=== PATIENT | female | born 1970 | race Caucasian/White ===

== ENCOUNTER → 2017-03-01 | Outpatient (CLI) | payer BC ==
[~2017-03-01] MED LIST: HYDR25TA4 PO; OXYC-57 PO; OXYC1TAB3 PO; POTA10TA30 PO; TPRSR100 PO
[2017-03-01 14:22] LABS: BASO % 0.5 %; BASO ABS # 0.05 K/uL (0-0.2); COMPLETE YES; EOS % 1.9 %; IG% 0.2 %; LYMPH % 25.8 %; LYMPH ABS # 2.48 K/uL (1.2-3.4); MEAN CORPUSCULAR HEMOGLOBIN 30.6 pg (25-34); MEAN CORPUSCULAR HGB CONC 32.9 g/dl (32-36); MEAN PLATELET VOLUME 12.1 fL (7.4-10.4); MONO % 7.4 %; NEUT % 64.2 %; PLATELET COUNT 299 K/uL (130-400); RED BLOOD COUNT 5.16 M/uL (4.2-5.4); WHITE BLOOD COUNT 9.61 K/uL (4.8-10.8)
[2017-03-01 14:34] LABS: BLOOD UREA NITROGEN 7 mg/dl (7-18); CREATININE 0.84 mg/dl (0.60-1.20); GLUCOSE 74 mg/dl (70-99)
[2017-03-01 14:35] LABS: ALT/SGPT 21 U/L (12-78); BUN/CREATININE RATIO 8.8 (10-20); CARBON DIOXIDE 29 mmol/L (21-32); CHLORIDE 106 mmol/L (98-107); POTASSIUM 4.5 mmol/L (3.5-5.1); SODIUM 140 mmol/L (136-145)
[2017-03-01 14:45] LABS: ALB/GLOB RATIO 1.1 (0.9-2); ALKALINE PHOSPHATASE 64 U/L (45-117); AST/SGOT 15 U/L (15-37)
[2017-03-01 15:11] LABS: CALCIUM 9.4 mg/dl (8.5-10.1)
[2017-03-01 16:31] LABS: LYME DISEASE AB IGG NEG (NEG); LYME DISEASE AB IGM NEG (NEG)
== END | disposition home or self-care (01) ==
LOC: C.LABSPEC 13:36
PROVIDERS: ATTEND Family Medicine
DX: R22.9 Localized swelling, mass and lump, unspecified (principal); M25.50 Pain in unspecified joint

== ENCOUNTER → 2017-06-15 | Outpatient (CLI) | payer BC | END | disposition home or self-care (01) | LOC: C.PAPS 13:45 | PROVIDERS: ATTEND Family Medicine | DX: Z12.72 Encounter for screening for malignant neoplasm of vagina (principal) ==

== ENCOUNTER → 2017-07-16 | Outpatient (CLI) | payer BC ==
--- NOTE | 2017-07-19 08:01 | MAMMOGRAPHY REPORT ---
BILATERAL DIGITAL SCREENING MAMMOGRAM TOMOSYNTHESIS WITH CAD: 07/16/2017 CLINICAL HISTORY: Routine screening. Patient has no complaints. TECHNIQUE: Breast tomosynthesis in addition to standard 2D mammography was performed. Current study was also evaluated with a Computer Aided Detection (CAD) system. COMPARISON: Comparison is made to exam dated: 08/28/2009 mammogram - [facility]. BREAST COMPOSITION: There are scattered areas of fibroglandular density in both breasts. FINDINGS: No suspicious masses, calcifications, or areas of architectural distortion are noted in ei ther breast. There has been no significant interval change compared to prior exams. IMPRESSION: ACR BI-RADS CATEGORY 1: NEGATIVE There is no mammographic evidence of malignancy. A 1 year screening mammogram is recommended. The pa tient will receive written notification of the results. Approximately 10% of breast cancers are not detected with mammography. A negative mammographic report should not delay biopsy if a clinically suggestive mass is present. Vane Cisse M.D. ah/:07/16/2017 17:02:46 [employer]: Radha Alcantara, [facility] letter sent: Normal 1/2 BI-RADS Code: ACR BI-RADS Category 1: Negative
== END | disposition home or self-care (01) ==
LOC: C.MAMM 10:04
PROVIDERS: ATTEND Family Medicine
DX: Z12.31 Encounter for screening mammogram for malignant neoplasm of breast (principal)

== ENCOUNTER 2019-02-09 18:23 | Inpatient (IN) ==
--- OUTSIDE RECORDS SUMMARY | 2019-02-09 18:26 | External Medical Summary | Continuity of Care Document ---
:1970 Author Name Miguel Cosme Address Unavailable Unavailable , Care Team Providers Name Role Phone Gideon LINK M.D., P. Unavailable [email or web address] [place] GARVEY Unavailable Unavailable Problems Active medical history not documented Allergies and Adverse Reactions Allergy history not documented Medications Medications not documented Procedures Procedures not documented Immunizations Immunizations not documented Plan of Treatment Planned Observations Planned Goals not documented Results No Known Results Results not documented Encounters Appointment; Re Meneses III, M.D. 24-Dec-2014 15:00 Encounter Diagnosis: Problem not documented
[2019-02-09] MEDS ORDERED: SODIUM CHLORIDE 0.9% 1000ML 1,000 ML IV SCH (19:15)
--- NOTE | 2019-02-09 19:32 | XRay Report ---
XR chest 1V portable CLINICAL HISTORY: weakness COMPARISON STUDY: Chest CT July 14, 2014. FINDINGS: Anterior spinal fusion is incidentally noted. There is no pneumothorax or pleural effusion. Lungs are clear. Cardiac size is normal. Mediastinal contours are normal. There is no evidence for p ulmonary edema. IMPRESSION: No acute cardiopulmonary findings. Electronically signed by: Corby Coto M.D. 02/09/2019 7:30 PM
[2019-02-09 19:39] LABS: Basophils # (auto) 0.01 K/uL (0-0.2); Basophils % (auto) 0.1 %; Hematocrit (blood only) 45.4 % (37-47); Hemoglobin 16.3 g/dL (12.0-16.0); Immature Granulocytes # (auto) 0.03 K/uL (0.00-0.02); Immature Granulocytes % (auto) 0.3 %; Lymphocytes # (auto) 0.91 K/uL (1.2-3.4); Lymphocytes % (auto) 7.6 %; Mean Corpuscular Hgb Conc 35.9 g/dL (32-36); Mean Corpuscular Volume 85.8 fL (80-100); Mean Platelet Volume 10.6 fL (7.4-10.4); Monocytes # (auto) 0.52 K/uL (0.11-0.59); Monocytes % (auto) 4.4 %; Neutrophils # (auto) 10.43 K/uL (1.4-6.5); Neutrophils % (auto) 87.6 %; Platelet Count 362 K/uL (130-400); RDW Coefficient of Variation 13.7 % (11.5-14.5); RDW Standard Deviation 42.9 fL (36.4-46.3); Red Blood Count 5.29 M/uL (4.2-5.4)
[2019-02-09 19:55] LABS: Partial Thromboplastin Ratio 0.9; Prothrombin Time 9.8 Seconds (9.0-12.0)
[2019-02-09] MEDS ORDERED: LORazepam 1 MG TAB SL STA (20:07)
[2019-02-09 20:19] LABS: Alanine Aminotransferase 24 U/L (12-78); Albumin Globulin Ratio 0.7 (0.9-2); Albumin Level 3.6 gm/dl (3.4-5.0); Alkaline Phosphatase 74 U/L (45-117); Aspartate Aminotransferase 13 U/L (15-37); BUN Creatinine Ratio 13.4 (10-20); Bilirubin,Total 0.5 mg/dl (0.2-1); Blood Urea Nitrogen 13 mg/dl (7-18); C Reactive Protein 1.89 mg/dl (0-0.29); Carbon Dioxide 28 mmol/L (21-32); Chloride 100 mmol/L (98-107); Creatine Kinase 72 U/L (26-192); Creatinine Clr Calc Pharmacy 100.3 ml/min; Est GFR (African American) 84.3; Est GFR (Non-African American) 72.8; Globulin 4.8 gm/dl (2.5-4.0); Glucose 128 mg/dl (70-99); Magnesium 2.2 mg/dl (1.8-2.4); Phosphorus 1.1 mg/dl (2.5-4.9); Potassium 2.4 mmol/L (3.5-5.1); Sodium 134 mmol/L (136-145); Total Protein 8.4 gm/dl (6.4-8.2); Troponin I < 0.015 ng/ml (0-0.045)
[2019-02-09] MEDS ORDERED: POT PHOSPHATE MONOBASIC W/ SOD TAB PO STA (20:25)
[2019-02-09] MEDS ORDERED: POTASSIUM CHLORIDE 20 MEQ TABCR PO STA (20:25)
[2019-02-09] MEDS ORDERED: POTASSIUM PHOS 3 MMOL/1 ML INFUSION IV STA (20:25)
[2019-02-09 20:35] LABS: Lyme Ab IgG w/WB Rflx Negative (Negative); Lyme Ab IgM w/WB Rflx Negative (Negative)
[2019-02-09] MEDS: POTASSIUM CHLORIDE / WTR 10 MEQ/100 ML PLCT IV SCH ×2 (20:37→21:44)
[2019-02-09] MEDS ORDERED: POTASSIUM PHOSPHATE 15 MMOL in SODIUM CHLORIDE 0.9% 250 ML IV ONE (21:00)
[2019-02-09 21:06] LABS: Appearance Urine Clear (Clear); Bilirubin Urine Negative (Negative); Blood Urine Negative (Negative); Color Urine Yellow; Glucose Urine UA 2+ (Negative); Ketones Urine Negative (Negative); Leukocyte Esterase Urine Negative (Negative); Nitrite Urine Negative (Negative); Protein Urine Negative (Negative); Specific Gravity Urine 1.018 (1.000-1.030); Urobilinogen Urine Negative (Negative)
[2019-02-09 22:09] LABS: Pregnancy Test, Serum Negative (Negative)
--- NOTE | 2019-02-09 22:19 | CT Scan Report ---
CT OF THE HEAD WITHOUT CONTRAST CLINICAL HISTORY: Bilateral lower extremity weakness. COMPARISON STUDY: Head CT August 04, 2010. TECHNIQUE: Helical axial images of the head were obtained without IV contrast. Automated exposure con trol was utilized for the study. A dose lowering technique was utilized adhering to the principles o f ALARA. FINDINGS: No acute intracranial hemorrhage, midline shift or mass effect is present. Brain volume is normal. Ventricular system is normal. The basilar cisterns are patent. There are no extra-axial colle ctions. Guthrie-white differentiation is maintained. There are no findings to suggest acute dural sinus thrombosis or acute territorial infarct. There are no significant calvarial abnormalities. Visualized portions of the sinuses and mastoid air cells are clear. IMPRESSION: No acute intracranial findings. Electronically signed by: Corby Coto M.D. 02/09/2019 10:17 PM
--- NOTE | 2019-02-09 22:22 | CT Scan Report ---
CT OF THE CERVICAL SPINE WITHOUT CONTRAST CLINICAL HISTORY: Bilateral lower extremity weakness. COMPARISON STUDY: Cervical spine CT July 14, 2014. TECHNIQUE: Helical axial images of the cervical spine were obtained without IV contrast. Sagittal a nd coronal reconstructions were viewed. Automated exposure control was utilized for the study. A do se lowering technique was utilized adhering to the principles of ALARA. FINDINGS: Craniocervical junction is intact. There is no acute cervical spine fracture or subluxation . The patient is status post C6-C7 anterior discectomy and fusion. The hardware is intact. Facet join ts are intact. There is no prevertebral edema. Central canal and neural foramen are suboptimally asse ssed by CT. There is mild disc space narrowing and osteophytosis at several levels. There is mild mul tilevel facet arthrosis. IMPRESSION: 1. No acute cervical spine fracture or subluxation. 2. Status post C6-C7 anterior discectomy and fusion. 3. Suboptimal evaluation of the central canal and neural foramen given CT technique. Mild multilevel degenerative disc disease and facet arthrosis. Electronically signed by: Corby Coto M.D. 02/09/2019 10:21 PM
--- NOTE | 2019-02-09 22:32 | CT Scan Report ---
CT OF THE LUMBAR SPINE WITHOUT CONTRAST CLINICAL HISTORY: Bilateral lower extremity weakness. COMPARISON STUDY: No previous studies for comparison. TECHNIQUE: Axial images of the lumbar spine were obtained without IV contrast. Sagittal and coronal r econstructions were viewed. Study was performed utilizing automated exposure control for dose reducti on and according to ALARA principles. FINDINGS: For purposes of numbering on this exam, the L5-S1 disc space is assigned to axial image 321 of [id number]. Vertebral body heights are maintained. No fracture or suspicious lesion is present. Paravert ebral soft tissues are unremarkable. Cholecystectomy clips are noted. Note is made of mild disc space narrowing and osteophytosis at L5-S1. Otherwise, disc spaces are preserved. Central canal and neural foramen are suboptimally assessed by CT. 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 No disc protrusion or herniation is identified although sensitivity is diminished given CT technique. N ote is made of moderate multilevel facet arthrosis within the lumbar spine. IMPRESSION: 1. No acute lumbar spine fracture or subluxation. 2. Mild disc space narrowing at L5-S1. Central canal suboptimally assessed by CT but no evidence for severe central canal stenosis. No disc protrusion or extrusion by CT. 3. Moderate multilevel facet arthrosis. Electronically signed by: Corby Coto M.D. 02/09/2019 10:30 PM
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
[2019-02-09] MEDS ORDERED: POTASSIUM CHLORIDE 10 MEQ TABCR PO STA (23:54)
[2019-02-10] MEDS ORDERED: POTASSIUM PHOS 3 MMOL/1 ML INFUSION IV STA (01:19)
[2019-02-10] MEDS ORDERED: ACETAMINOPHEN 325 MG TAB PO PRN (01:19)
[2019-02-10] MEDS ORDERED: POLYETHYLENE (MIRALAX) 17 GM PACK PO PRN (01:19)
[2019-02-10] MEDS ORDERED: ONDANSETRON INJ 2 MG/ML 2 ML VIAL IV PRN (01:19)
[2019-02-10] MEDS ORDERED: ALUMINUM/MAGNESIUM SUSP 30 ML UDC PO PRN (01:19)
[2019-02-10] MEDS ORDERED: MAGNESIUM HYDROXIDE SUSP 30 ML UDC PO PRN (01:19)
[2019-02-10] MEDS ORDERED: POTASSIUM PHOSPHATE 30 MMOL in SODIUM CHLORIDE 0.9% 500 ML IV ONE (01:30)
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
[2019-02-10] MEDS: BCP'S~ORDER AWAITING ACTION SCH ×2 (07:38→15:44)
[2019-02-10] MEDS ORDERED: POTASSIUM CHLORIDE 20 MEQ TABCR PO SCH (09:00)
[2019-02-10 09:44] LABS: BUN Creatinine Ratio 8.7 (10-20); Blood Urea Nitrogen 7 mg/dl (7-18); C Reactive Protein 1.02 mg/dl (0-0.29); Calcium 8.1 mg/dl (8.5-10.1); Carbon Dioxide 27 mmol/L (21-32); Chloride 107 mmol/L (98-107); Creatinine Clr Calc Pharmacy 116.3 ml/min; Est GFR (African American) 100.9; Est GFR (Non-African American) 87.1; Glucose 112 mg/dl (70-99); Potassium 2.5 mmol/L (3.5-5.1)
[2019-02-10 09:50] LABS: Sodium 142 mmol/L (136-145)
[2019-02-10 09:51] LABS: Phosphorus 2.6 mg/dl (2.5-4.9); Troponin I < 0.015 ng/ml (0-0.045)
[2019-02-10] MEDS ORDERED: POTASSIUM CHLORIDE 20 MEQ TABCR PO STA (09:56)
[2019-02-10] MEDS: POTASSIUM CHLORIDE 20 MEQ TABCR PO SCH ×2 (13:33→21:53)
--- NOTE | 2019-02-10 18:10 | Hospitalist Progress Note ---
Date of Service February 10, 2019 Assessment & Plan (1) Lower extremity weakness: The differential for this is somewhat broad. For practical purposes given her very low potassium as well as the fact that it dropped fairly precipitously, the bleed differential would be that severe hypokalemia is causing a diffuse muscle weakness, but she is noticing it most going up steps because that would require the most power. We will replace K and follow her strength. But in the meantime we will explore other differentials as well. She does not show any bony or disc disease that would cause nerve impingement, nor does she have any pain that would fit with this, so conventional spinal disease appears to be out of the question. That said given her somewhat odd clinical course and elevated inflammatory markers, it does beg the question of something more in terms of an inflammatory or demyelinating neurologic process. Will ask neurology for an opinion, and a low threshold for MRI of brain or L-spine (with sedation given her claustrophobia) (2) Abnormal EKG: She has had ongoing ST depressions, no troponin, and no cardiac symptoms. This most likely is her normal EKG. Less likely is related to the hypokalemia, but that usually causes overall diminished electrical activity. (3) Hypokalemia: She notes that she is had difficulty with low potassium for years, but she also notes that the difficulty of low potassium was preceded by being on thiazide type diuretics. Given the chlorthalidone is more potent, and given that her potassium dropped precipitously after switching to that, it is likely that she is quite sensitive to the potassium wasting effects of diuretics, and likely just needs to have her blood pressure managed by other means. More than likely the minimal improvement of her potassium despite significant supplementation is due to intracellular shifting. We will continue to replete aggressively, follow-up in the morning (4) Hypophosphatemia: Replaced (5) Hypertension: Continue metoprolol, hold off on any further diuretics. Follow pressures. (6) Cervical spinal cord compression: This seems to be unrelated given her weakness seems to be mostly proximal leg, certainly if further work-up is having no yield, then a dedicated MRI of the C-spine could possibly, theoretically yield findings that might explain her weakness, but more likely this does not relate to her acute presentation. Subjective No new complaints or symptoms, although she has not really been out of bed since getting here except for walking to the bathroom and around in her room. She notes that her main problem is been going up steps, and everything in the hospital is on the level. She reiterates her HPI. She notes that about 2 weeks ago or so she was changed from hydrochlorothiazide to chlorthalidone, and then over the last day or 2, she is noticed leg weakness predominantly going up steps. She notes on a level she is okay, she notes that getting in and out of her car (what seems to be about a level move) is okay. She does not necessarily notice any clear-cut weakness laying in bed, but notes weakness going up steps. Later she discusses with nursing and degree of leg paresthesias as well. She does not necessarily note any other weakness, but she has felt quite fatigued for a while. Case discussed with PCP as well. Patient has had a face rash going on the last few weeks as well, he had checked an MARK and rheumatoid factor both of which were negative. And of note her potassium was 3.3 about a week or so ago. Review of Systems Review of Systems: All systems reviewed & are unremarkable except as noted in HPI & below No chest pain no shortness of breath. Physical Exam Physical Exam: In general awake alert oriented x3, pleasant no distress. HEENT normocephalic atraumatic mucous membranes moist. Breathing unlabored no accessory muscle use good effort Extremities show no cyanosis clubbing or edema no calf tenderness. Neuro shows cranial nerves II through XII are grossly intact gross motor and sensory are intact. Bilateral lower extremities show about 4+ out of 5 strength at flexion and extension of the hip, otherwise strength appears to be intact. She does not appear to show any muscle wasting. Results & Data Vital Signs (Past 12 Hours) Vital Signs Temp Pulse Pulse Resp BP Pulse Ox 02/10/19 15:49 36.7 C 74 16 133/84 96 02/10/19 11:07 36.6 C 71 18 128/83 94 02/10/19 07:23 36.4 C L 76 18 116/77 95 02/10/19 07:02 69 (1) Lower extremity weakness Laterality: bilateral Qualified Code(s): R29.898 - Other symptoms and signs involving the musculoskeletal system
[2019-02-10] MEDS ORDERED: METOPROLOL SUCC 50MG EXT REL TAB PO SCH (21:00)
[2019-02-11] MEDS: BCP'S~ORDER AWAITING ACTION SCH ×3 (00:05→17:01)
[2019-02-11 07:21] LABS: BUN Creatinine Ratio 14.6 (10-20); Calcium 8.3 mg/dl (8.5-10.1); Creatinine Clr Calc Pharmacy 136.5 ml/min; Est GFR (Non-African American) 104.4
[2019-02-11] MEDS: POTASSIUM CHLORIDE 20 MEQ TABCR PO SCH ×2 (08:34→13:47)
[2019-02-11] MEDS ORDERED: POTASSIUM CHLORIDE 20 MEQ TABCR PO ONE (09:00)
--- NOTE | 2019-02-11 12:10 | Neurology Consultation ---
Date of Consultation February 11, 2019 Assessment & Plan (1) Lower extremity weakness: This is a 48-year-old female who presents with proximal lower extremity weakness and distal lower extremity sensory changes. Certainly her symptoms could be secondary to recent medication change to chlorthalidone which can cause severe hypokalemia. Hypokalemia can cause muscle weakness. It could take a week or 2 after holding medication to see improvement. Additional differential diagnosis alludes lumbar spinal lesion, inflammatory or demyelinating lesions, inflammatory myopathy, metabolic disorders including vitamin deficiencies Recommendations: Continue to hold chlorthalidone since this could be related to her symptoms. I have sent off for additional labs for work-up including rheumatology panel, ceruloplasmin and copper level, magnesium level, acetylcholine receptor antibodies, SPEP, folate, B6 level, CK, vitamin B12 level, vitamin D level, anaplasmosis. Recommend MRI of the lumbar spine with contrast to rule out lumbar spinal lesions. Recommend physical therapy evaluation and treatment. If safe to go home from physical therapy standpoint, could reasonably continue her work-up and evaluation as an outpatient in the neurology clinic after she gets MRI spine. If still symptomatic, would consider EMG as an outpatient. History of Present Illness Reason for Consultation: Consultation for bilateral leg weakness Attending Physician: Kyle Krueger, History of Present Illness This is a 48-year-old female who presents with bilateral leg weakness. Reports that she had been having intermittent tingling and burning in her distal lower extremities distal to the knees for the last week. On she was not able to go upstairs. Reports that she seems okay walking on level ground but is not able to do stairs. No specific muscle pain. No rashes on the extremity. For the last month she has been having red rash or flushing of the face. Her primary care checked her for MARK and rheumatoid factor which was negative. Then switched her to a different medication thinking it might of been her hydrochlorothiazide. She was switched to chlorothalidone 2 to 3 weeks ago. On she was also given a single dose of prednisone to see if this would help her facial symptoms. Patient denies any recreational drug use. No regular alcohol use. Her mother does have lupus but no other family history of muscle or nerve disorders. She denies any recent sick symptoms or fevers. CT of the L and C-spine as well as the head was unremarkable. There was signs of C6/C7 discectomy and fusion. Patient does have a significant history of cervical injury status post repair. At baseline she has numbness and arms more prominent in the first through third fingers. Labs: WBCs 11.9, ESR 52, potassium 2.5 on admit, phosphorus was also low on admit, CRP 1.02, TSH was within normal limits. Lyme was negative. As noted previously primary care reportedly checked MARK and rheumatoid factor which were negative. Allergies Allergy/AdvReac Type Severity Reaction Status Date / Time prochlorperazine Allergy Unknown paralysis Verified 02/09/19 19:36 Sulfa (Sulfonamide AdvReac Unknown gi upset Verified 02/09/19 19:36 Antibiotics) Home Medications Home Medications Medication Instructions Recorded Confirmed Type chlorthalidone 25 mg PO HS 02/09/19 02/09/19 History meloxicam [Mobic] 15 mg PO DAILY 02/09/19 02/09/19 History metoprolol succinate [Toprol XL] 100 mg PO HS 02/09/19 02/09/19 History norethindrone (contraceptive) 1 tab PO DAILY 02/09/19 02/09/19 History [Vidya] potassium chloride [Klor-Con M20] 20 meq PO DAILY 02/09/19 02/09/19 History prednisone 20 mg PO UD 02/09/19 02/09/19 History Patient History Medical History Hypertension (Chronic) Cord compression (Acute 08/10/14) Surgical History Hx of cholecystectomy (Resolved) Family History Other Lupus Social History Preferred Language: [place] Communication Ability: Effective Beliefs That Will Affect Care: None Current Living Situation: Alone Feels Safe at Home: Yes Safety Concerns: Feels Safe At This Time Smoking Status: Never smoker Hx Alcohol Use: No Hx Substance Use: No Review of Systems Review of Systems: All systems reviewed & are unremarkable except as noted in HPI & below Physical Exam 2 Physical Exam: Gen.: Patient is alert and oriented in no acute distress lying in bed Heart: Regular rate and rhythm Extremities: No gross deformities or rashes noted Neurological examination: Mental status: Patient is alert and oriented to person place and time. Able to give own history. Good fund of knowledge. Attention and concentration normal for the situation. Recent and remote memory intact Speech is fluent without any dysarthria or aphasia noted Cranial nerves: Funduscopic examination was unremarkable. Pupils equally round and reactive to light. Extraocular muscles intact without nystagmus. No facial asymmetry noted. Facial sensation intact. Tongue midline. Good palatal elevation. Good shoulder shrug bilaterally. Hearing grossly intact voice. Strength: 5/5 both proximal and distal in all extremities .Tone is normal. Sensation: Grossly intact to light touch in all extremities Deep tendon reflexes: +1 in bilateral biceps and patellar. Toes are downgoing to plantar stimulation bilaterally Coordination: Patient has good finger to nose without dysmetria Station within the bed is normal. Results & Data Vital Signs (Past 12 Hours) Vital Signs Temp Pulse Resp BP Pulse Ox 02/11/19 07:00 36.6 C 63 18 129/84 95 (1) Lower extremity weakness Laterality: bilateral Qualified Code(s): R29.898 - Other symptoms and signs involving the musculoskeletal system
[2019-02-11 14:01] LABS: Magnesium 2.3 mg/dl (1.8-2.4)
[2019-02-11 14:13] LABS: Folate (Folic Acid) 14.56 ng/ml (>5.38)
[2019-02-11] MEDS ORDERED: LORazepam 1 MG/2 ML VIAL IV ONE (14:37)
[2019-02-11] MEDS ORDERED: LORazepam 1 MG/2 ML VIAL IV PRN (14:38)
[2019-02-11 15:34] VITALS: BP 151/91; PULSE 75; TEMP 97.7; O2SAT 97
[2019-02-11] MEDS ORDERED: GADOBUTROL 30ML VIAL IV PRN (17:41)
--- NOTE | 2019-02-11 18:06 | Magnetic Resonance Report ---
MRI OF THE LUMBAR SPINE WITH AND WITHOUT CONTRAST CLINICAL HISTORY: Bilateral lower extremity weakness. COMPARISON STUDY: Lumbar spine CT February 09, 2019. TECHNIQUE: Utilizing a 1.5 Daphne magnet and dedicated coil, multiplanar, multiecho imaging of the [facility] spine was performed before and after uneventful IV administration of 12 mL of Gadavist. FINDINGS: For purposes of numbering on this exam, the L5-S1 disc space is assigned to axial image 23 of 25. Siria tebral body heights are maintained. There is no marrow edema or marrow replacement. There is mild dis c space narrowing and osteophytosis at L5-S1. No intracanalicular mass, fluid collection or abnormal enhancement is present. The conus terminates at the L1 level. Paravertebral soft tissues are unremark able. Hemangioma is noted within the L1 vertebral body. L1-2: The central canal and neural foramen are patent. L2-3: The central canal and neural foramen are patent. L3-4: The central canal and neural foramen are patent. L4-5: There is mild facet arthrosis. There is minimal disc bulge. A tiny left foraminal disc protrusi on is noted. The central canal and neural foramen are patent. L5-S1: There is mild disc space narrowing with disc bulge. Central canal is patent. There is minimal narrowing of the right neural foramen. Left neural foramen is patent. IMPRESSION: 1. No acute process within the lumbar spine. 2. Mild multilevel degenerative disc disease and facet arthrosis. Patent central canal. Mild multilev el neural foraminal narrowing. Electronically signed by: Corby Coto M.D. 02/11/2019 6:04 PM
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
[2019-02-18 20:21] LABS: Anaplasma phagocytophila IgM <1:20 (<1:20); Anti Cardiolipin Ab IgG <14 GPL (< = 14); Anti Cardiolipin Ab IgM <12 MPL (< = 12); Anti Nuclear Antibody Screen NEGATIVE (NEGATIVE); Anti-Centromere Ab <1.0 NEG AI (<1.0 NEG); Anti-SS-A <1.0 NEG AI (<1.0 NEG); Anti-SS-B <1.0 NEG AI (<1.0 NEG); Ceruloplasmin 37 MG/DL (18-53); Chromatin Antibody <1.0 NEG AI (<1.0 NEG); Complement C3 171 MG/DL (83-193); Copper, Serum 146 mcg/dL (70-175); DNA ds Crithidia NEGATIVE (NEGATIVE); Microsomal Ab <1 IU/ML (<9); Sm Antibody <1.0 NEG AI (<1.0 NEG); Vitamin B6 4.3 ng/mL (2.1-21.7)
== END 2019-02-11 20:05 | disposition home or self-care (01) | DRG 641 ==
LOC: ED 18:23 → SUATTDRO 02-10 00:10 → 2N 02-10 00:10